=== PATIENT | female | born 1985 | race Caucasian/White ===

== ENCOUNTER 2019-04-02 12:05 | Emergency (ER) | payer MEDICAID ==
[2019-04-02] MEDS: ONDANSETRON (ODT) 4 MG TAB ODT (12:45)
[2019-04-02] MEDS: HYDROCODONE/APAP (5/325) TAB PO (12:45)
== END 2019-04-02 13:47 | disposition home or self-care (01) ==
LOC: FTE 13:47
DX: S20.219A Contusion of unspecified front wall of thorax, initial encounter (principal); R07.89 Other chest pain; V49.50XA Passenger injured in collision with unspecified motor vehicles in traffic accident, initial encounter
CPT/HCPCS: 71250; 81025; 93005; 99284-25